=== PATIENT | female | born 1950 ===

== ENCOUNTER 2017-09-11 10:41 | Day surgery (SDC) | payer MEDICAID ==
[2017-09-07 10:43] VITALS: BMI 32.3
[2017-09-11] MEDS ORDERED: Midazolam 2 MG/2 ML VIAL ONE (14:31)
[2017-09-11] MEDS ORDERED: Propofol 10 mg/ml Inj (20 ML) ONE (14:31)
[2017-09-11] MEDS ORDERED: Bupivacaine HCl 0.25% PF (10 ml) Inj ONE (14:35)
[2017-09-11] MEDS ORDERED: Lidocaine 1% Inj (20ml) ONE (14:35)
[2017-09-11] MEDS ORDERED: ceFAZolin IV 1 gm in Dextrose 1 GM/50 ML BAG IVPB ONE (14:36)
[2017-09-11] MEDS ORDERED: Lactated Ringer's 1,000 ML IV ONE (15:33)
[2017-09-11] MEDS ORDERED: HYDROmorphone 0.5 mg/0.5 ml ISec IVP PRN (15:44)
[2017-09-11] MEDS ORDERED: Oxycodone/Acetaminophen 5/325 mg Tab PO PRN (15:52)
[2017-09-11 16:59] VITALS: RESP 16
[2017-09-11 18:10] VITALS: BP 138/76; PULSE 95; TEMP 97.2; O2SAT 95
--- NOTE | 2017-09-12 01:07 | OP ---
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 PROCEDURE PERFORMED: Wide and deep excision of a 7-cm vascular tumor of the left thigh and a 5-cm vascular tumor of the left leg. SURGEON: Gurpreet Cabrera MD TYPE OF ANESTHESIA: General. ESTIMATED BLOOD LOSS: 70 mL. POSTOPERATIVE CONDITION: Stable. DESCRIPTION OF PROCEDURE: The patient was taken to the operating room. General anesthesia was administered and then the left lower extremity was prepped and draped. Attention was turned to the left thigh, a 7-cm mass was excised via an elliptical incision. The incision was carried down into the fascial layer. The mass was completely removed. Bleeding was controlled using the Bovie. Tissue flaps are raised using a Bovie including full-thickness tissue flaps with fascia and after counterincisions on the fascia, an advancement flap closure was performed in multiple layers with Monocryl, subcuticular Monocryl and skin clips. The above was repeated on the smaller 5-cm lesion in the left leg. The patient tolerated the procedure well and returned to the recovery room in stable condition. Gurpreet Cabrera MD
== END 2017-09-11 18:18 | disposition home or self-care (01) ==
LOC: C.SDS 10:41
PROVIDERS: ATTEND Surgery
DX: D48.7 Neoplasm of uncertain behavior of other specified sites (principal); I73.89 Other specified peripheral vascular diseases
CPT/HCPCS: 11404; 82948; 88307; J0690; J1170; J2250; J2704; J3010; J7070; J7120

== ENCOUNTER 2017-10-02 09:17 | Inpatient (IN) | payer MEDICAID ==
[2017-10-02 09:18] VITALS: BMI 32.3
--- NOTE | 2017-10-02 09:58 | C.PDOC ---
Chief Complaint (Nursing): Medical Clearance Past Medical History Vital Signs: Last Vital Signs Temp 98.4 F 10/02/17 09:24 Pulse 99 H 10/02/17 09:24 Resp 18 10/02/17 09:24 BP 161/85 H 10/02/17 09:24 Pulse Ox 98 10/02/17 09:24 - Medical History PMH: HTN, Osteoporosis Denies: Chronic Kidney Disease Surgical History: Appendectomy - Social History Hx Alcohol Use: No Hx Substance Use: No - Immunization History Hx Tetanus Toxoid Vaccination: No Hx Influenza Vaccination: No Hx Pneumococcal Vaccination: No ED Course And Treatment O2 Sat by Pulse Oximetry: 98 Disposition - Disposition
[2017-10-02] MEDS ORDERED: ceFAZolin IV 1 gm in Dextrose 1 GM/50 ML BAG IVPB ONE (10:03)
[2017-10-02 10:22] LABS: BASO # 0.1 K/uL (0.0-0.2); BASO % 0.8 % (0.0-2.0); EOS % 0.3 % (0.0-4.0); HEMOGLOBIN 14.1 g/dL (11.0-16.0); LYMPH # 2.4 K/uL (1.0-4.3); MEAN CELL VOLUME 90.8 fL (81.0-99.0); MEAN CORPUSCULAR HEMOGLOBIN 31.7 pg (27.0-31.0); MEAN CORPUSCULAR HGB CONC 34.9 g/dL (33.0-37.0); MEAN PLATELET VOLUME 11.4 fL (7.2-11.7); MONO # 0.4 K/uL (0.0-0.8); NEUT # 7.6 K/uL (1.8-7.0); NEUT % 71.9 % (50.0-75.0); RBC 4.44 Mil/uL (3.80-5.20); WHITE BLOOD COUNT 10.6 K/uL (4.8-10.8)
[2017-10-02 10:31] LABS: ALB/GLOB RATIO 1.1 (1.0-2.1); ALBUMIN 4.2 g/dL (3.5-5.0); ALT/SGPT 30 U/L (9-52); AST/SGOT 25 U/L (14-36); BLOOD UREA NITROGEN 17 mg/dL (7-17); CALCIUM 9.5 mg/dl (8.6-10.4); GFR AFRICAN-AMERICAN > 60; GFR NON-AFRICAN AMERICAN > 60
[2017-10-02 10:34] LABS: INR 1.1; PROTHROMBIN TIME 12.1 SECONDS (9.7-12.2)
--- NOTE | 2017-10-02 10:38 | C.PDOC ---
History Of Present Illness 66 year old female with PMHx of DM and HTN presents to the ED c/o pain of a non healing wound to her left thigh status post varicose veins surgery several weeks ago. Patient's wound is producing a foul smell. Patient denies any fever, chills, nausea, vomit, diarrhea, weakness, numbness. Time Seen by Provider: 10/02/17 09:53 Chief Complaint (Nursing): Medical Clearance History Per: Patient History/Exam Limitations: no limitations Onset/Duration Of Symptoms: Days Current Symptoms Are (Timing): Still Present Recent travel outside of the [place]: No Additional History Per: Patient Past Medical History Reviewed: Historical Data, Nursing Documentation, Vital Signs Vital Signs: Last Vital Signs Temp 98.4 F 10/02/17 18:00 Pulse 64 10/02/17 18:00 Resp 22 10/02/17 18:00 BP 132/87 10/02/17 18:00 Pulse Ox 98 10/02/17 18:44 - Medical History PMH: HTN, Osteoporosis Denies: Chronic Kidney Disease Surgical History: Appendectomy Family History: States: Unknown Family Hx - Social History Hx Alcohol Use: No Hx Substance Use: No - Immunization History Hx Tetanus Toxoid Vaccination: No Hx Influenza Vaccination: No Hx Pneumococcal Vaccination: No Review Of Systems Constitutional: Negative for: Fever, Chills Cardiovascular: Negative for: Chest Pain, Palpitations Respiratory: Negative for: Cough, Shortness of Breath Gastrointestinal: Negative for: Nausea, Vomiting, Abdominal Pain Musculoskeletal: Positive for: Other (non heaking wound to left thigh) Skin: Negative for: Rash Neurological: Negative for: Weakness, Numbness Physical Exam - Physical Exam Appears: Non-toxic, No Acute Distress Skin: Normal Color, Warm, Dry Head: Atraumatic, Normacephalic Eye(s): bilateral: Normal Inspection Nose: No Discharge, No Deformity Oral Mucosa: Moist Neck: Normal ROM, Supple Chest: Symmetrical Cardiovascular: Rhythm Regular, No Murmur Respiratory: Normal Breath Sounds, No Rales, No Rhonchi, No Wheezing Gastrointestinal/Abdominal: Soft, No Tenderness, No Guarding, No Rebound Extremity: Normal ROM, No Tenderness, No Pedal Edema, No Calf Tenderness, Capillary Refill (< 2 seconds), No Swelling, Other (Proximal thigh quarter size diameter x 0.5 inch deep wound with malodorous discharge) Pulses: Right Radial: Normal, Left Femoral: Normal, Left Dorsalis Pedis: Normal , Right Dorsalis Pedis: Normal Neurological/Psych: Oriented x3, Normal Speech, Normal Cognition ED Course And Treatment - Laboratory Results Result Diagrams: 10/02/17 10:14 10/02/17 10:14 O2 Sat by Pulse Oximetry: 98 Medical Decision Making Medical Decision Making: Impression: non healing wound left proximal thigh Plan: * Labs * Wound Culture * Ancef 1 gm in 50 ml IVPB Discussed case with Dr. Gifford who will admit the patient to his service and give antibiotics. Disposition Discussed With : Gurpreet Cabrera Doctor Will See Patient In The: Hospital - Disposition Disposition: HOSPITALIZED Disposition Time: 11:06 Condition: STABLE - Clinical Impression Clinical Impression: Wound infection - PA / ECONOMIC DEVELOPER / Resident Statement MD/DO has reviewed & agrees with the documentation as recorded. - Scribe Statement The provider has reviewed the documentation as recorded by the Scribe Thomas Hernandez All medical record entries made by the Scribe were at my direction and personally dictated by me. I have reviewed the chart and agree that the record accurately reflects my personal performance of the history, physical exam, medical decision making, and the department course for this patient. I have also personally directed, reviewed, and agree with the discharge instructions and disposition.
[2017-10-02] MEDS ORDERED: ceFAZolin 1 GM in Sodium Chloride 0.9% 100 ML IVPB ONE (13:00)
[2017-10-02] MEDS ORDERED: Lactated Ringer's 1,000 ML IV ONE ×3 (13:43→16:00)
[2017-10-02] MEDS ORDERED: Lidocaine 1% Inj (20ml) ONE (14:00)
[2017-10-02] MEDS ORDERED: Bupivacaine HCl 0.25% PF (10 ml) Inj ONE (14:00)
[2017-10-02] MEDS ORDERED: Midazolam 2 MG/2 ML VIAL ONE (14:17)
[2017-10-02] MEDS ORDERED: Propofol 10 mg/ml Inj (20 ML) ONE (14:18)
[2017-10-02] MEDS ORDERED: Oxycodone/Acetaminophen 5/325 mg Tab PO PRN (15:04)
[2017-10-02] MEDS ORDERED: Lactated Ringer's 1,000 ML IV SCH (15:30)
[2017-10-02] MEDS ORDERED: Pneumococcal 23-Valent Vaccine IM ONE (18:42)
[2017-10-02] MEDS: Lactated Ringer's 1,000 ML IV SCH (19:04)
--- NOTE | 2017-10-02 22:54 | CP.PCM.CON ---
History of Present Illness - History of Present Illness History of Present Illness: History Of Present Illness 66 year old female with PMHx of DM and HTN presents to the ED c/o pain of a non healing wound to her left thigh status post varicose veins surgery several weeks ago. Patient's wound is producing a foul smell. Patient denies any fever, chills, nausea, vomit, diarrhea, weakness, numbness. Past Patient History - Past Medical History & Family History Past Medical History?: Yes - Past Social History Smoking Status: Never Smoked - CARDIAC Hx Hypertension: Yes - PULMONARY Hx Respiratory Disorders: No - NEUROLOGICAL Hx Neurological Disorder: No - HEENT Hx HEENT Problems: Yes Hx Cataracts: Yes (IMMATURE) - RENAL Hx Chronic Kidney Disease: No - ENDOCRINE/METABOLIC Hx Endocrine Disorders: Yes Hx Diabetes Mellitus Type 2: Yes - HEMATOLOGICAL/ONCOLOGICAL Hx Blood Disorders: No - INTEGUMENTARY Hx Dermatological Problems: Yes Other/Comment: HX: MASS LEFT THIGH/LOWER LEG - MUSCULOSKELETAL/RHEUMATOLOGICAL Hx Osteoporosis: Yes - GASTROINTESTINAL Hx Gastrointestinal Disorders: No - GENITOURINARY/GYNECOLOGICAL Hx Genitourinary Disorders: No - PSYCHIATRIC Hx Substance Use: No - SURGICAL HISTORY Hx Appendectomy: Yes - ANESTHESIA Hx Anesthesia: Yes Hx Anesthesia Reactions: No Hx Malignant Hyperthermia: No Has any member of the family had a problem w/ anesthesia?: No Meds Allergies/Adverse Reactions: Allergies Allergy/AdvReac Type Severity Reaction Status Date / Time No Known Allergies Allergy Verified 10/02/17 09:28 - Medications Medications: Current Medications Docusate Sodium (Colace) 100 mg PO BID [facility] Last Admin: 10/02/17 18:29 Dose: 100 mg Famotidine (Pepcid) 20 mg IVP Q12 [facility] Lactated Ringer's (Lactated Ringer's) 1,000 mls @ 80 mls/hr IV .[id number] [facility] Last Admin: 10/02/17 19:04 Dose: 80 mls/hr Ondansetron HCl (Zofran Inj) 4 mg IVP Q6 PRN PRN Reason: Nausea/Vomiting Oxycodone/Acetaminophen (Percocet 5/325 Mg Tab) 2 tab PO Q4H PRN PRN Reason: pain Stop: 10/05/17 15:05 Pneumococcal Polyvalent Vaccine (Pneumovax 23 Vaccine) 0.5 ml IM .ONCE ONE Stop: 10/03/17 10:01 Results - Vital Signs Recent Vital Signs: Last Vital Signs Temp 97.8 F 10/02/17 18:29 Pulse 72 10/02/17 18:29 Resp 18 10/02/17 18:29 BP 146/80 10/02/17 18:29 Pulse Ox 98 10/02/17 18:45 - Labs Result Diagrams: 10/03/17 16:59 10/03/17 16:59 Labs: Laboratory Results - last 24 hr 10/02/17 10/02/17 10/02/17 10:14 10:14 10:14 WBC 10.6 RBC 4.44 Hgb 14.1 Hct 40.3 MCV 90.8 MCH 31.7 H MCHC 34.9 RDW 13.0 Plt Count 171 MPV 11.4 Neut % (Auto) 71.9 Lymph % (Auto) 23.0 [place] % (Auto) 4.0 Eos % (Auto) 0.3 Baso % (Auto) 0.8 Neut # (Auto) 7.6 H Lymph # (Auto) 2.4 [place] # (Auto) 0.4 Eos # (Auto) 0.0 Baso # (Auto) 0.1 PT 12.1 INR 1.1 APTT 31 Sodium 139 Potassium 3.6 Chloride 102 Carbon Dioxide 23 Anion Gap 18 BUN 17 Creatinine 0.8 Est GFR ( Amer) > 60 Est GFR (Non-Af Amer) > 60 Random Glucose 152 H Calcium 9.5 Total Bilirubin 0.5 AST 25 ALT 30 Alkaline Phosphatase 84 Total Protein 8.0 Albumin 4.2 Globulin 3.7 Albumin/Globulin Ratio 1.1
[2017-10-03] MEDS: Lactated Ringer's 1,000 ML IV SCH ×2 (07:57→20:07)
[2017-10-03] MEDS: Enoxaparin 40 mg Syringe SC SCH (09:57)
[2017-10-03] MEDS ORDERED: Influenza Vaccine 60 mcg/0.5 mL SYR (4YR UP) IM ONE (10:00)
[2017-10-03] MEDS ORDERED: Pneumococcal 23-Valent Vaccine IM ONE (10:00)
[2017-10-03] MEDS: ceFAZolin 1 GM in Sodium Chloride 0.9% 100 ML IVPB SCH ×2 (13:44→21:07)
[2017-10-03 17:07] LABS: BASO # 0.1 K/uL (0.0-0.2); BASO % 0.6 % (0.0-2.0); EOS # 0.2 K/uL (0.0-0.7); EOS % 1.6 % (0.0-4.0); HEMOGLOBIN 12.6 g/dL (11.0-16.0); LYMPH # 3.1 K/uL (1.0-4.3); LYMPH % 31.9 % (20.0-40.0); MEAN CELL VOLUME 91.3 fL (81.0-99.0); MEAN CORPUSCULAR HGB CONC 33.9 g/dL (33.0-37.0); MEAN PLATELET VOLUME 10.3 fL (7.2-11.7); MONO # 0.6 K/uL (0.0-0.8); NEUT # 5.9 K/uL (1.8-7.0); NEUT % 59.9 % (50.0-75.0); NRBC % 0.1 % (0.0-2.0); RBC 4.05 Mil/uL (3.80-5.20); WHITE BLOOD COUNT 9.8 K/uL (4.8-10.8)
[2017-10-03 17:26] LABS: ALB/GLOB RATIO 1.1 (1.0-2.1); ALBUMIN 3.6 g/dL (3.5-5.0); ALT/SGPT 28 U/L (9-52); AST/SGOT 24 U/L (14-36); BLOOD UREA NITROGEN 11 mg/dL (7-17); CALCIUM 8.9 mg/dl (8.6-10.4); GFR AFRICAN-AMERICAN > 60; GFR NON-AFRICAN AMERICAN > 60
--- NOTE | 2017-10-03 23:02 | CP.PCM.PN ---
Subjective - Date & Time of Evaluation Date of Evaluation: 10/03/17 Time of Evaluation: 19:00 - Subjective Subjective: Pt seen and evaluated at bedside today Objective - Vital Signs/Intake and Output Vital Signs (last 24 hours): Temp Pulse Resp BP Pulse Ox 97.9 F 65 20 116/83 95 10/03/17 16:25 10/03/17 16:25 10/03/17 16:25 10/03/17 16:25 10/03/17 16:25 Intake and Output: 10/03/17 10/04/17 18:59 06:59 Intake Total 250 Balance 250 - Medications Medications: Current Medications Docusate Sodium (Colace) 100 mg PO BID [facility] Last Admin: 10/03/17 17:06 Dose: 100 mg Enoxaparin Sodium (Lovenox) 40 mg SC DAILY [facility] Last Admin: 10/03/17 09:57 Dose: 40 mg Famotidine (Pepcid) 20 mg IVP Q12 [facility] Last Admin: 10/03/17 21:07 Dose: 20 mg Lactated Ringer's (Lactated Ringer's) 1,000 mls @ 80 mls/hr IV .[id number] [facility] Last Admin: 10/03/17 20:07 Dose: 80 mls/hr Cefazolin Sodium 1 gm/ Sodium (Chloride) 100 mls @ 200 mls/hr IVPB Q8H [facility] Stop: 10/10/17 14:01 Last Admin: 10/03/17 21:07 Dose: 200 mls/hr Ondansetron HCl (Zofran Inj) 4 mg IVP Q6 PRN PRN Reason: Nausea/Vomiting Oxycodone/Acetaminophen (Percocet 5/325 Mg Tab) 2 tab PO Q4H PRN PRN Reason: pain Stop: 10/05/17 15:05 - Labs Labs: 10/03/17 16:59 10/03/17 16:59 PT 12.1 SECONDS (9.7-12.2) 10/02/17 10:14 INR 1.1 10/02/17 10:14 APTT 31 SECONDS (21-34) 10/02/17 10:14
[2017-10-04] MEDS: ceFAZolin 1 GM in Sodium Chloride 0.9% 100 ML IVPB SCH ×3 (05:41→21:58)
[2017-10-04] MEDS: Lactated Ringer's 1,000 ML IV SCH ×3 (08:25→20:03)
[2017-10-04] MEDS: Enoxaparin 40 mg Syringe SC SCH (10:00)
[2017-10-04] MEDS ORDERED: Propofol 10 mg/ml Inj (20 ML) ONE (12:12)
[2017-10-04] MEDS ORDERED: HYDROmorphone 0.5 mg/0.5 ml ISec IVP PRN (12:47)
--- NOTE | 2017-10-04 23:43 | CP.PCM.PN ---
Subjective - Date & Time of Evaluation Date of Evaluation: 10/04/17 Time of Evaluation: 19:00 - Subjective Subjective: Pt seen and examined, is on wound care Objective - Vital Signs/Intake and Output Vital Signs (last 24 hours): Temp Pulse Resp BP Pulse Ox 98.1 F 67 20 100/69 97 10/04/17 16:16 10/04/17 16:16 10/04/17 16:16 10/04/17 16:16 10/04/17 16:16 Intake and Output: 10/04/17 10/05/17 18:59 06:59 Intake Total 900 1040 Balance 900 1040 - Medications Medications: Current Medications Docusate Sodium (Colace) 100 mg PO BID [facility] Last Admin: 10/04/17 17:22 Dose: 100 mg Enoxaparin Sodium (Lovenox) 40 mg SC DAILY [facility] Last Admin: 10/04/17 10:00 Dose: Not Given Famotidine (Pepcid) 20 mg IVP Q12 [facility] Last Admin: 10/04/17 21:59 Dose: 20 mg Lactated Ringer's (Lactated Ringer's) 1,000 mls @ 80 mls/hr IV .[id number] [facility] Last Admin: 10/04/17 20:03 Dose: Not Given Cefazolin Sodium 1 gm/ Sodium (Chloride) 100 mls @ 200 mls/hr IVPB Q8H [facility] Stop: 10/10/17 14:01 Last Admin: 10/04/17 21:58 Dose: 200 mls/hr Ondansetron HCl (Zofran Inj) 4 mg IVP Q6 PRN PRN Reason: Nausea/Vomiting Oxycodone/Acetaminophen (Percocet 5/325 Mg Tab) 2 tab PO Q4H PRN PRN Reason: pain Stop: 10/05/17 15:05 - Labs Labs: 10/03/17 16:59 10/03/17 16:59 PT 12.1 SECONDS (9.7-12.2) 10/02/17 10:14 INR 1.1 10/02/17 10:14 APTT 31 SECONDS (21-34) 10/02/17 10:14
--- NOTE | 2017-10-05 00:21 | OP ---
PROCEDURE DATE: 10/03/2017 PREOPERATIVE DIAGNOSIS: Status post drainage and debridement of deep abscess of the right thigh. POSTOPERATIVE DIAGNOSIS: Status post drainage and debridement of deep abscess of the right thigh. PROCEDURE PERFORMED: Re-drainage of thigh abscess with debridement and partial tissue transfer closure. SURGEON: Gurpreet Cabrera MD ANESTHESIA: General. BLOOD LOSS: 30 mL. POSTOP CONDITION: Stable. INDICATIONS FOR SURGERY: This is a 66-year-old female, status post drainage of a deep abscess and necrotic area of her right thigh, which she was taken back to the OR today for change of packing and re-debridement under anesthesia. PROCEDURE: The patient was taken to the operating room, general anesthesia was administered. The packing was removed from her right thigh, it was prepped and draped. Two separate areas of necrosis had been noted, both these areas had been packed. Both areas were re-debrided and any remaining collections were drained and cultured. Bleeding was controlled using the Bovie. Larger blood vessels were repaired. The wound was pulse irrigated with saline and Kantrex solution. Partial advancement flap closures were performed at the periphery, and the central portion of wound was packed with saline gauze. The patient tolerated the procedure well and returned to recovery room in stable condition. Gurpreet Cabrera MD
[2017-10-05] MEDS: Lactated Ringer's 1,000 ML IV SCH (04:39)
[2017-10-05] MEDS: ceFAZolin 1 GM in Sodium Chloride 0.9% 100 ML IVPB SCH ×3 (05:51→21:41)
[2017-10-05 08:10] LABS: BASO # 0.1 K/uL (0.0-0.2); BASO % 0.7 % (0.0-2.0); EOS # 0.2 K/uL (0.0-0.7); HEMOGLOBIN 13.3 g/dL (11.0-16.0); LYMPH # 2.5 K/uL (1.0-4.3); LYMPH % 30.8 % (20.0-40.0); MEAN CELL VOLUME 90.7 fL (81.0-99.0); MEAN CORPUSCULAR HEMOGLOBIN 31.2 pg (27.0-31.0); MEAN CORPUSCULAR HGB CONC 34.4 g/dL (33.0-37.0); MEAN PLATELET VOLUME 10.6 fL (7.2-11.7); MONO # 0.4 K/uL (0.0-0.8); MONO % 5.1 % (0.0-10.0); NEUT # 5.1 K/uL (1.8-7.0); NEUT % 61.4 % (50.0-75.0); NRBC % 0.1 % (0.0-2.0); RBC 4.26 Mil/uL (3.80-5.20); RED CELL DISTRIBUTION WIDTH 12.8 % (11.5-14.5); WHITE BLOOD COUNT 8.2 K/uL (4.8-10.8)
[2017-10-05 08:18] LABS: PROTHROMBIN TIME 11.7 SECONDS (9.7-12.2)
[2017-10-05 08:39] LABS: ALB/GLOB RATIO 1.1 (1.0-2.1); ALBUMIN 3.8 g/dL (3.5-5.0); ALT/SGPT 20 U/L (9-52); AST/SGOT 20 U/L (14-36); BLOOD UREA NITROGEN 11 mg/dL (7-17); GFR AFRICAN-AMERICAN > 60; GFR NON-AFRICAN AMERICAN > 60
[2017-10-05] MEDS: Enoxaparin 40 mg Syringe SC SCH (11:00)
[2017-10-05] MEDS ORDERED: Midazolam 2 MG/2 ML VIAL ONE (13:48)
[2017-10-05] MEDS ORDERED: Propofol 10 mg/ml Inj (20 ML) ONE (13:49)
[2017-10-05] MEDS ORDERED: Lidocaine Hydrochloride 5 ML INJ ONE (13:52)
[2017-10-05] MEDS ORDERED: ePHEDrine 50 mg/ml Inj ONE (14:07)
[2017-10-05] MEDS ORDERED: Bacitracin Ointment 30 GM TUBE ONE (14:16)
[2017-10-05] MEDS ORDERED: Lactated Ringer's 1,000 ML IV ONE (14:27)
[2017-10-05] MEDS ORDERED: HYDROmorphone 0.5 mg/0.5 ml ISec IVP PRN (14:48)
[2017-10-05] MEDS ORDERED: Lactated Ringer's 1,000 ML IV SCH (15:00)
[2017-10-05 16:27] VITALS: RESP 20; O2SAT 95
--- NOTE | 2017-10-05 23:42 | CP.PCM.PN ---
Subjective - Date & Time of Evaluation Date of Evaluation: 10/05/17 Time of Evaluation: 18:35 - Subjective Subjective: Pt seen and evaluated at bedside,is improving, no fever, chills, no shortness of breath remains on antibiotics, wound care for left leg wound Objective - Vital Signs/Intake and Output Vital Signs (last 24 hours): Temp Pulse Resp BP Pulse Ox 98.1 F 64 20 148/75 95 10/05/17 18:00 10/05/17 22:21 10/05/17 18:00 10/05/17 22:21 10/05/17 16:27 Intake and Output: 10/05/17 10/06/17 18:59 06:59 Intake Total 1180 1200 Balance 1180 1200 - Medications Medications: Current Medications Docusate Sodium (Colace) 100 mg PO BID [facility] Last Admin: 10/05/17 17:51 Dose: 100 mg Enoxaparin Sodium (Lovenox) 40 mg SC DAILY [facility] Last Admin: 10/04/17 10:00 Dose: Not Given Famotidine (Pepcid) 20 mg IVP Q12 [facility] Last Admin: 10/05/17 21:42 Dose: 20 mg Cefazolin Sodium 1 gm/ Sodium (Chloride) 100 mls @ 200 mls/hr IVPB Q8H [facility] Stop: 10/10/17 14:01 Last Admin: 10/05/17 21:41 Dose: 200 mls/hr Lactated Ringer's (Lactated Ringer's) 1,000 mls @ 100 mls/hr IV .Q10H [facility] Last Admin: 10/05/17 21:35 Dose: 100 mls/hr Lisinopril (Zestril) 20 mg PO DAILY [facility] Metformin HCl (Glucophage) 500 mg PO BID [facility] Last Admin: 10/05/17 17:51 Dose: 500 mg Ondansetron HCl (Zofran Inj) 4 mg IVP Q6 PRN PRN Reason: Nausea/Vomiting Last Admin: 10/05/17 18:33 Dose: 4 mg Rosuvastatin Calcium (Crestor) 20 mg PO HS [facility] Last Admin: 10/05/17 21:43 Dose: 20 mg - Labs Labs: 10/05/17 08:04 10/05/17 08:04 PT 11.7 SECONDS (9.7-12.2) 10/05/17 08:04 INR 1.0 10/05/17 08:04 APTT 30 SECONDS (21-34) 10/05/17 08:04 - Constitutional Appears: No Acute Distress - Head Exam Head Exam: ATRAUMATIC, NORMAL INSPECTION, NORMOCEPHALIC - Eye Exam Eye Exam: EOMI, Normal appearance, PERRL Pupil Exam: NORMAL ACCOMODATION, PERRL - Respiratory Exam Respiratory Exam: Clear to Ausculation Bilateral, NORMAL BREATHING PATTERN - Cardiovascular Exam Cardiovascular Exam: REGULAR RHYTHM, +S1, +S2. absent: Murmur - GI/Abdominal Exam GI & Abdominal Exam: Soft, Normal Bowel Sounds. absent: Tenderness Assessment and Plan (1) Wound infection Status: Acute (2) Diabetes Status: Acute (3) HTN (hypertension) Status: Acute
[2017-10-06] MEDS: ceFAZolin 1 GM in Sodium Chloride 0.9% 100 ML IVPB SCH (05:26)
[2017-10-06 08:18] LABS: BASO % 0.5 % (0.0-2.0); EOS # 0.2 K/uL (0.0-0.7); EOS % 1.9 % (0.0-4.0); HEMOGLOBIN 12.7 g/dL (11.0-16.0); LYMPH # 2.6 K/uL (1.0-4.3); LYMPH % 28.3 % (20.0-40.0); MEAN CELL VOLUME 90.9 fL (81.0-99.0); MEAN CORPUSCULAR HEMOGLOBIN 31.7 pg (27.0-31.0); MEAN CORPUSCULAR HGB CONC 34.8 g/dL (33.0-37.0); MEAN PLATELET VOLUME 10.4 fL (7.2-11.7); MONO # 0.6 K/uL (0.0-0.8); MONO % 6.4 % (0.0-10.0); NEUT # 5.9 K/uL (1.8-7.0); NEUT % 62.9 % (50.0-75.0); RBC 4.02 Mil/uL (3.80-5.20); WHITE BLOOD COUNT 9.3 K/uL (4.8-10.8)
[2017-10-06 08:27] VITALS: BP 138/73; PULSE 62; TEMP 98.1
[2017-10-06 08:46] LABS: ALB/GLOB RATIO 1.1 (1.0-2.1); ALBUMIN 3.6 g/dL (3.5-5.0); ALT/SGPT 22 U/L (9-52); AST/SGOT 23 U/L (14-36); BLOOD UREA NITROGEN 11 mg/dL (7-17); GFR AFRICAN-AMERICAN > 60; GFR NON-AFRICAN AMERICAN > 60
[2017-10-06] MEDS: Enoxaparin 40 mg Syringe SC SCH (10:15)
--- NOTE | 2017-10-06 22:41 | CP.PCM.DIS ---
Provider - Provider Date of Admission: 10/02/17 11:05 Attending physician: Gurpreet Cabrera MD Diagnosis - Discharge Diagnosis (1) Wound infection Status: Acute (2) Diabetes Status: Acute (3) HTN (hypertension) Status: Acute Hospital Course - Lab Results Lab Results: Micro Results 10/02/17 15:13 Abscess - Thigh-Left Gram Stain - Final 10/02/17 15:13 Abscess - Thigh-Left Wound Culture - Final Citrobacter Diversus Corynebacterium Species 10/02/17 10:06 Thigh - Left Gram Stain - Final 10/02/17 10:06 Thigh - Left Wound Culture - Final Corynebacterium Species Most Recent Lab Values WBC 9.3 K/uL (4.8-10.8) 10/06/17 08:05 RBC 4.02 Mil/uL (3.80-5.20) 10/06/17 08:05 Hgb 12.7 g/dL (11.0-16.0) 10/06/17 08:05 Hct 36.6 % (34.0-47.0) 10/06/17 08:05 MCV 90.9 fL (81.0-99.0) 10/06/17 08:05 MCH 31.7 pg (27.0-31.0) H 10/06/17 08:05 MCHC 34.8 g/dL (33.0-37.0) 10/06/17 08:05 RDW 13.0 % (11.5-14.5) 10/06/17 08:05 Plt Count 146 K/uL (130-400) 10/06/17 08:05 MPV 10.4 fL (7.2-11.7) 10/06/17 08:05 Neut % (Auto) 62.9 % (50.0-75.0) 10/06/17 08:05 Lymph % (Auto) 28.3 % (20.0-40.0) 10/06/17 08:05 [place] % (Auto) 6.4 % (0.0-10.0) 10/06/17 08:05 Eos % (Auto) 1.9 % (0.0-4.0) 10/06/17 08:05 Baso % (Auto) 0.5 % (0.0-2.0) 10/06/17 08:05 Neut # (Auto) 5.9 K/uL (1.8-7.0) 10/06/17 08:05 Lymph # (Auto) 2.6 K/uL (1.0-4.3) 10/06/17 08:05 [place] # (Auto) 0.6 K/uL (0.0-0.8) 10/06/17 08:05 Eos # (Auto) 0.2 K/uL (0.0-0.7) 10/06/17 08:05 Baso # (Auto) 0.0 K/uL (0.0-0.2) 10/06/17 08:05 PT 11.7 SECONDS (9.7-12.2) 10/05/17 08:04 INR 1.0 10/05/17 08:04 APTT 30 SECONDS (21-34) 10/05/17 08:04 Sodium 139 mmol/L (132-148) 10/06/17 08:05 Potassium 3.8 mmol/L (3.6-5.2) 10/06/17 08:05 Chloride 102 mmol/L (98-107) 10/06/17 08:05 Carbon Dioxide 28 mmol/L (22-30) 10/06/17 08:05 Anion Gap 13 (10-20) 10/06/17 08:05 BUN 11 mg/dL (7-17) 10/06/17 08:05 Creatinine 0.8 mg/dL (0.7-1.2) 10/06/17 08:05 Est GFR ( Amer) > 60 10/06/17 08:05 Est GFR (Non-Af Amer) > 60 10/06/17 08:05 POC Glucose (mg/dL) 85 mg/dL (65-110) 10/06/17 10:59 Random Glucose 106 mg/dL (65-105) H 10/06/17 08:05 Calcium 9.0 mg/dl (8.6-10.4) 10/06/17 08:05 Total Bilirubin 0.5 mg/dL (0.2-1.3) 10/06/17 08:05 AST 23 U/L (14-36) 10/06/17 08:05 ALT 22 U/L (9-52) 10/06/17 08:05 Alkaline Phosphatase 69 U/L (38-126) 10/06/17 08:05 Total Protein 6.9 g/dL (6.3-8.3) 10/06/17 08:05 Albumin 3.6 g/dL (3.5-5.0) 10/06/17 08:05 Globulin 3.3 gm/dL (2.2-3.9) 10/06/17 08:05 Albumin/Globulin Ratio 1.1 (1.0-2.1) 10/06/17 08:05 Beta HCG, Quant < 2.39 mIU/ML 10/05/17 08:04 - Hospital Course Hospital Course: Pt seen and evaluated at bedside,is improving, no fever, chills, no shortness of breath remains on antibiotics, wound care for left leg wound Discharge Exam - Head Exam Head Exam: ATRAUMATIC, NORMAL INSPECTION, NORMOCEPHALIC - Eye Exam Eye Exam: EOMI, Normal appearance, PERRL Pupil Exam: NORMAL ACCOMODATION, PERRL - ENT Exam ENT Exam: Mucous Membranes Moist - Respiratory Exam Respiratory Exam: Clear to PA & Lateral, NORMAL BREATHING PATTERN - Cardiovascular Exam Cardiovascular Exam: REGULAR RHYTHM, +S1, +S2 - GI/Abdominal Exam GI & Abdominal Exam: Normal Bowel Sounds Discharge Plan - Discharge Medications Prescriptions: Bacitracin Ointment [Bacitracin] 30 gm TOP DAILY #1 tube Docusate [Colace] 100 mg PO BID 7 Days cap Cefadroxil [Duricef] 500 mg PO BID #15 cap traMADol [Ultram] 50 mg PO Q6H PRN #20 tab PRN Reason: Pain, Moderate (4-7) - Follow Up Plan Condition: STABLE Disposition: HOME/ ROUTINE Instructions: Cefadroxil (By mouth), Laxative, Stool Softeners (By mouth), Tramadol (By mouth), Bacitracin (On the skin), Wound Infection (DC), Diabetes Mellitus Type 2 in Adults (GEN), Hypertension (DC) Additional Instructions: Follow up with Dr. Cabrera on Friday 10/13. Call for appointment. Resume home medications. You may shower and remove dressing on Sunday 10/08. Gently wash with soap and water, pat dry. Replace with bacitracin and clean dry dressing. Wash hands before changing dressing. Call the office if wound becomes red, drains, pus, or temperature is greater than 101.5 Remain active but do not over exert yourself. Maintain light activity. Visiting nurse will see you on Monday 10/09. Referrals: Beni Chavarria MD [Staff Provider] - Gurpreet Cabrera MD [Staff Provider] -
--- NOTE | 2017-10-09 14:02 | PQF DEBRID ---
This form is a permanent part of the medical record To Marisa Cabrera MD, Patient was admitted with non healing wound on her left thigh status post surgery for varicose vein. Wound was with abcess and necrotic tissues, had Debridement done , Please clarify if Excisional or Non Excisional Debridement. Please check boxes below for EXCISIONAL DEBRIDEMENT INDICATORS.; Please review if the procedure was done on LEFT THIGH or RIGHT THIGH. Documentations indicates patient had non healing wound on her LEFT thigh. Thank you Clarification of your documentation is requested to better reflect the severity of illness and intensity of treatment of your patient. Indicators present [] Documentation of wound care / debridement [] Technique: [] [] Instrument used:[] [] Nature of Tissue Removed:[] [] Appearance of Wound:[] [] Size of Wound: [] [] Depth of Debridement: [] [] Other: [] Location in the medical record that reflects the above clinical findings: [] Other Treatment Provided: [] PHYSICIAN'S RESPONSE Based on your medical judgment, can you further clarify the precise NATURE, DEPTH, EXTENT and / or METHODS of wound debridement utilized in this case: [] EXCISIONAL debridement use of a scalpel / blade to cut away tissue Depth (subcutaneous, fascia, muscle, soft tissue and bone) [] Size of Wound [] NON-EXCISIONAL debridement chemical, scrubbing, trimming with a scissor/ versajet [] Other, please indicate: [] [] If unable to determine, please check the box, sign and date. In responding to this query, please exercise your independent professional judgment. The fact that a question is asked does not imply that any particular answer is desired or expected. Thank you for your clarification on this documentation. If you have any questions please call:[ ] * Thank you, [ Roya Jerez, [facility]] sr. media manager JACKELYN
[2017-10-12] MEDS ORDERED: Home Med 1 UNIT (Alendronate [Fosamax] 70 MG) PO SCH (10:00)
== END 2017-10-06 15:08 | disposition home or self-care (01) | DRG 899 ==
LOC: C.ER 09:17 → C.9E 11:05 → C.5S 18:03
PROVIDERS: ADMIT Surgery; ATTEND Surgery
PROC: 0HBJXZZ Excision of Left Upper Leg Skin, External Approach (ICD-10-PCS; principal; 2017-10-03)
PROC: 0HXJXZZ Transfer Left Upper Leg Skin, External Approach (ICD-10-PCS; 2017-10-03)
DX: T81.4XXA Infection following a procedure, initial encounter (principal); L02.416 Cutaneous abscess of left lower limb; Y83.8 Other surgical procedures as the cause of abnormal reaction of the patient, or of later complication, without mention of misadventure at the time of the procedure; E11.9 Type 2 diabetes mellitus without complications; I10 Essential (primary) hypertension